=== PATIENT | male | born 1995 | race Caucasian/White ===

== ENCOUNTER → 2020-01-17 | Outpatient (CLI) | payer OTHER ==
--- NOTE | 2020-01-23 10:12 | SLEEPCENT ---
DATE: 01/17/2020 ORDERED BY: LOPEZ Hallman Nocturnal polysomnography was performed for evaluation of sleep physiology in this patient with a history of excessive somnolence, snoring, and non- restorative sleep. Six hours and 53 minutes of data were reviewed. There were 393.5 minutes of sleep identified. Sleep latency was short at 3.5 minutes. REM latency was mildly prolonged at 116 minutes. Sleep architecture was fair with 3-4 REM cycles. Overall sleep efficiency was 96.2%. The electrocardiogram showed a sinus rhythm with an average heart rate of 50 beats per minute. EEG showed normal waveforms for wake and sleep. There were 17 respiratory events identified of ten seconds in duration or greater for an apnea hypopnea index within normal limits at 2.6. Snoring was noted over the course of the study. Respiratory related arousals when arousals from snoring were included occurred 4.4 times per hour. There was only one oxygen desaturation below 90%, this may have been artifactual. There was minimal activity in the limb leads. Limb movement arousal index was 1.8. IMPRESSIONS: Normal nocturnal polysomnography with snoring. [facility]
== END ==
LOC: M SLEEP 20:00
PROVIDERS: ATTEND Nurse Practitioner Family
DX: R06.83 Snoring (principal)